=== PATIENT | female | born 1995 | race Caucasian/White ===

== ENCOUNTER → 2016-11-30 | Outpatient (REF) | LOC: WSOH 11:37 | DX: Z02.89 Encounter for other administrative examinations (principal) ==

== ENCOUNTER → 2017-01-10 | Outpatient (CLI) | payer BC | LOC: COL.RAD 07:54 | DX: S86.892A Other injury of other muscle(s) and tendon(s) at lower leg level, left leg, initial encounter (principal); S86.891A Other injury of other muscle(s) and tendon(s) at lower leg level, right leg, initial encounter | CPT/HCPCS: A9503 ==

== ENCOUNTER 2017-12-21 13:04 | Day surgery (SDC) | payer BC ==
[~2017-12-21] VITALS: Ht 167.6 cm; Wt 77.8 kg
[2017-12-21] MEDS ORDERED: CELEXA 20MG20 MG/TAB PO (13:25)
[2017-12-21] MEDS ORDERED: SEROQUEL 1100 MG/TAB PO (13:25)
[2017-12-21] MEDS ORDERED: ZANTAC 150MG T150 MG PO (13:26)
[2017-12-21] MEDS ORDERED: MIRENA52 MG IY (13:26)
[2017-12-21] MEDS ORDERED: MULTIPLE VITAMI1 CAP PO (13:26)
[2017-12-21] MEDS ORDERED: COLACE 100100 MG/CAP PO (13:27)
[2017-12-21] MEDS ORDERED: B COMPLEX & B121 TAB PO (13:28)
[2017-12-21] MEDS ORDERED: PROBIOTIC ACID1 EAC3 PO (13:28)
[2017-12-21] MEDS ORDERED: CRANBERRY500 M3 PO (13:28)
[2017-12-21 13:29] VITALS: BP 102/77; PULSE 78; TEMP 97.7
[2017-12-21] MEDS ORDERED: NATURE'S BLE1000 MCG PO (13:29)
[2017-12-21] MEDS ORDERED: RECTIV0.4% RC (13:57)
[2017-12-21 14:55] VITALS: BP 109/74; PULSE 75; TEMP 97.8
[2017-12-21 15:10] VITALS: BP 105/67; PULSE 63
[2017-12-21 15:25] VITALS: BP 93/67; PULSE 68
[2017-12-21 16:10] VITALS: BP 107/64; PULSE 75
== END 2017-12-21 15:45 | disposition home or self-care (01) ==
LOC: SDCO 13:04
DX: K60.1 Chronic anal fissure (principal); K92.1 Melena; K62.89 Other specified diseases of anus and rectum; R19.7 Diarrhea, unspecified; R10.13 Epigastric pain; D64.9 Anemia, unspecified; F41.9 Anxiety disorder, unspecified; J45.909 Unspecified asthma, uncomplicated; K59.00 Constipation, unspecified; F32.9 Major depressive disorder, single episode, unspecified; K21.9 Gastro-esophageal reflux disease without esophagitis; G47.30 Sleep apnea, unspecified; K58.9 Irritable bowel syndrome, unspecified; E53.8 Deficiency of other specified B group vitamins; Z83.79 Family history of other diseases of the digestive system
CPT/HCPCS: J2250; J2405; J3010; J7030

== ENCOUNTER 2018-09-11 12:06 | Emergency (ER) | payer SELFPAY ==
[~2018-09-11] VITALS: Ht 167.6 cm; Wt 84.1 kg
[~2018-09-11 12:06] MED LIST: B COMPLEX & B121 TAB PO; CELEXA 20MG20 MG/TAB PO; COLACE 100100 MG/CAP PO; CRANBERRY500 M3 PO; MIRENA52 MG IY; MULTIPLE VITAMI1 CAP PO; NATURE'S BLE1000 MCG PO; PROBIOTIC ACID1 EAC3 PO; RECTIV0.4% RC; SEROQUEL 1100 MG/TAB PO; ZANTAC 150MG T150 MG PO
[2018-09-11 12:20] VITALS: TEMP 98.8
[2018-09-11] MEDS ORDERED: ZOFRAN 4MG T4 MG/TAB PO (14:20)
[2018-09-11 14:49] VITALS: BP 137/74; PULSE 86
== END 2018-09-11 14:50 | disposition home or self-care (01) ==
LOC: COL.ER 12:06
DX: F07.81 Postconcussional syndrome (principal); F32.9 Major depressive disorder, single episode, unspecified; F41.9 Anxiety disorder, unspecified; Y04.2XXA Assault by strike against or bumped into by another person, initial encounter; Y99.0 Civilian activity done for income or pay

== ENCOUNTER 2018-09-20 10:40 | Outpatient (RCR) | payer OTHER ==
[~2018-09-20 10:40] MED LIST changes: +ZOFRAN 4MG T4 MG/TAB PO
== END 2018-11-20 15:43 | disposition home or self-care (01) ==
LOC: WSOH 10:40
DX: F07.81 Postconcussional syndrome (principal); S00.83XA Contusion of other part of head, initial encounter; R51 Headache; W50.0XXA Accidental hit or strike by another person, initial encounter; Y92.59 Other trade areas as the place of occurrence of the external cause; Y99.0 Civilian activity done for income or pay; F41.9 Anxiety disorder, unspecified; F32.9 Major depressive disorder, single episode, unspecified; G47.9 Sleep disorder, unspecified; K21.9 Gastro-esophageal reflux disease without esophagitis; K58.9 Irritable bowel syndrome, unspecified; G50.0 Trigeminal neuralgia

== ENCOUNTER 2019-06-03 11:14 | Emergency (ER) | payer BC ==
[~2019-06-03] VITALS: Ht 167.6 cm; Wt 81.4 kg
[2019-06-03 11:32] VITALS: TEMP 97.5
[2019-06-03 11:43] LABS: COLLECTION METHOD CLEAN CATCH
[2019-06-03 12:06] LABS: BASO % 0.3 % (0.0-2.0); EOS # 0.1 (0.0-0.7); EOS % 0.6 % (0-4.0); GRAN # 8.3 (1.4-6.5); GRAN % 72.6 % (42.2-75.2); HEMATOCRIT 39.9 % (37.0-47.0); HEMOGLOBIN 13.6 g/dl (12.5-16.0); LYMPH # 2.4 (1.2-3.4); LYMPH % 20.6 % (20.0-51.0); MEAN CELL VOLUME 89 fl (80.0-100.0); MEAN CORPUSCULAR HEMOGLOBIN 30 pg (27.0-31.0); MEAN CORPUSCULAR HGB CONC 34 g/dl (33.0-37.0); MONO # 0.6 (0.1-0.6); MONO % 5.4 % (1.7-9.3); PLATELET COUNT 266 K/mm3 (130-400); RED BLOOD COUNT 4.48 M/mm3 (4.10-5.30); REDCELL DISTRIBUTION WIDTH-CV 12.6 % (11.5-14.5)
[2019-06-03 12:11] LABS: PH 5 (5-8); URINE APPEARANCE Clear; URINE COLOR Yellow; URINE KETONE 1+ (NEGATIVE)
[2019-06-03 12:12] LABS: URINE BILIRUBIN Negative (NEGATIVE); URINE BLOOD 3+ (NEGATIVE); URINE GLUCOSE Negative (NEGATIVE); URINE LEUKOCYTE ESTERASE Negative (NEGATIVE); URINE NITRATE Negative (NEGATIVE); URINE PROTEIN(semi-quant) Negative (NEGATIVE); URINE UROBILINOGEN Negative (NEGATIVE)
[2019-06-03 12:21] LABS: ALBUMIN 4.3 gm/dL (3.5-5.0); BILIRUBIN,TOTAL 0.3 mg/dL (0.0-1.0); C-REACTIVE PROTEIN 0.9 mg/dL (0.0-0.9); CALCIUM 9.1 mg/dL (8.4-10.2); CREATININE, serum 0.86 (0.52-1.25); POTASSIUM 4.1 mmol/L (3.4-5.0); TOTAL PROTEIN 7.8 gm/dL (6.4-8.2)
[2019-06-03 12:26] LABS: MUCOUS Present /lpf; SQUAMOUS EPITHELIAL 0-2 /hpf; URINE BACTERIA Occasional /hpf; URINE RBC 0-2 /hpf
[2019-06-03 12:38] LABS: MONOSCREEN NEGATIVE
[2019-06-03 13:24] VITALS: BP 116/79; PULSE 82
== END 2019-06-03 13:26 | disposition home or self-care (01) ==
LOC: COL.ER 11:14
PROVIDERS: Family Medicine
DX: J06.9 Acute upper respiratory infection, unspecified (principal)
CPT/HCPCS: J2405; J7030

== ENCOUNTER → 2019-11-07 | Outpatient (CLI) | payer BC | LOC: COL.RAD 07:58 | DX: R10.11 Right upper quadrant pain (principal); R11.0 Nausea; M54.9 Dorsalgia, unspecified ==

== ENCOUNTER → 2019-11-22 | Outpatient (CLI) | payer BC | LOC: BHSO 13:00 | DX: F31.81 Bipolar II disorder (principal) ==

== ENCOUNTER 2020-02-01 21:26 | Emergency (ER) | payer BC ==
[~2020-02-01] VITALS: Ht 167.6 cm; Wt 77.3 kg
[2020-02-01 21:32] VITALS: BP 136/95; TEMP 98.4
[2020-02-01 21:59] LABS: BASO # 0.1 (0.0-0.2); BASO % 0.5 % (0.0-2.0); EOS % 0.3 % (0-4.0); GRAN # 8.9 (1.4-6.5); GRAN % 61.3 % (42.2-75.2); HEMATOCRIT 41.1 % (37.0-47.0); HEMOGLOBIN 14.3 g/dl (12.5-16.0); LYMPH # 4.6 (1.2-3.4); LYMPH % 31.6 % (20.0-51.0); MEAN CELL VOLUME 86 fl (80.0-100.0); MEAN CORPUSCULAR HEMOGLOBIN 30 pg (27.0-31.0); MEAN CORPUSCULAR HGB CONC 35 g/dl (33.0-37.0); MEAN PLATELET VOLUME 8.7 fl (7.4-10.4); MONO # 0.9 (0.1-0.6); PLATELET COUNT 370 K/mm3 (130-400); REDCELL DISTRIBUTION WIDTH-CV 11.6 % (11.5-14.5)
[2020-02-01 22:13] LABS: CALCIUM 10.1 mg/dL (8.4-10.2); CREATININE, serum 0.95 (0.52-1.25); POTASSIUM 3.9 mmol/L (3.4-5.0); TOTAL PROTEIN 9.2 gm/dL (6.4-8.2)
[2020-02-01] MEDS ORDERED: ZOFRAN ODT4 MG PO (22:21)
[2020-02-01] MEDS ORDERED: D3-5050000 IU PO (22:36)
[2020-02-01] MEDS ORDERED: BACTRIM 400 MG-1 TAB PO (22:38)
[2020-02-01] MEDS ORDERED: ABILIFY DISCMEL10 M1 PO (22:39)
[2020-02-01] MEDS ORDERED: SINGULAIR 110 MG/TAB PO (22:39)
[2020-02-01] MEDS ORDERED: DULCOLAX STOOL100 MG PO (22:40)
[2020-02-01] MEDS ORDERED: QUDEXY XR100 MG PO (22:41)
[2020-02-01] MEDS ORDERED: IMITREX50 MG PO ×2 (22:41→22:45)
[2020-02-01] MEDS ORDERED: DETROL LA4 PO (22:42)
[2020-02-01] MEDS ORDERED: PRISTIQ100 MG PO (22:43)
[2020-02-01] MEDS ORDERED: DEPAKOTE500 MG PO (22:43)
[2020-02-01] MEDS ORDERED: ATARAX50 MG PO (22:44)
[2020-02-01] MEDS ORDERED: MAG-OX 400400 MG/TAB PO (22:44)
[2020-02-01] MEDS ORDERED: ATARAX 25MG25 MG/TAB PO (22:46)
[2020-02-01 23:25] VITALS: PULSE 89
== END 2020-02-01 23:25 | disposition home or self-care (01) ==
LOC: COL.ER 21:26
PROVIDERS: Emergency Medicine
DX: K29.70 Gastritis, unspecified, without bleeding (principal); F10.129 Alcohol abuse with intoxication, unspecified; R19.7 Diarrhea, unspecified; Z91.018 Allergy to other foods
CPT/HCPCS: C9113; J2405; J2550; J7030

== ENCOUNTER → 2020-02-19 | Outpatient (CLI) | payer BC ==
[~2020-02-19] MED LIST changes: +ABILIFY DISCMEL10 M1 PO; +ATARAX 25MG25 MG/TAB PO; +ATARAX50 MG PO; +BACTRIM 400 MG-1 TAB PO; +D3-5050000 IU PO; +DEPAKOTE500 MG PO; +DETROL LA4 PO; +DULCOLAX STOOL100 MG PO; +IMITREX50 MG PO; +MAG-OX 400400 MG/TAB PO; +PRISTIQ100 MG PO; +QUDEXY XR100 MG PO; +SINGULAIR 110 MG/TAB PO; +ZOFRAN ODT4 MG PO
== END ==
LOC: BHSO 15:02
DX: F31.81 Bipolar II disorder (principal)
CPT/HCPCS: G0463

== ENCOUNTER → 2020-04-23 | Outpatient (CLI) | payer BC | LOC: BHSO 11:00 | DX: F31.81 Bipolar II disorder (principal) | CPT/HCPCS: G0463 ==